=== PATIENT | female | born 1990 | race Caucasian/White ===

== ENCOUNTER → 2017-02-13 | Outpatient (CLI) | payer MEDICAID ==
[~2017-02-13] MED LIST: AMOXIL500 M1 PO; AMOXIL500 MG PO; ATARAX PO; AZITHROMYCIN250 MG PO; BACTROBAN2% TP; BENADRYL 50MG C50 MG PO; BENADRYL25 M1 PO; CHEW-IRON27 MG PO; CIPRO 500MG TA500 MG PO; CLARITIN 10MG T10 MG PO; COMPAZINE10 MG PO; DARVOCET-N 1001 EACH PO; DIPHENHYDRAMINE25 M1 PO; ELIMITE 5%60 GM/TUBE EX; FLAGYL 500MG.500 MG PO; FLEXERIL10 MG PO; HYDROXYZINE HYD10 MG PO; IBU800 M1 PO; IBUPROFEN400 MG PO; IRON TABLETS325 MG PO; KEFLEX 500MG.500 MG PO; LODINE200 MG PO; LORTAB 5/500 501 TAB PO; MACROBID 100MG100 MG PO; MEDROL 4MG. DOSE4 MG PO; MIRENA52 MG IU; MOTRIN 400MG.400 MG PO; MOTRIN400 MG PO; MOTRIN600 MG PO; NAPROSYN 500MG500 MG PO; NICOTINE T21 MG/24 H TD; NOMEDS XX; PEPCID20 MG PO; PEPTO BISM262 MG/15 PO; PERCOCET 5/3251 EACH PO; PHENERGAN 25MG.25 M1 PO; PREDNISONE 5MG.5 MG PO; PREDNISONE50 MG PO; PRENATAL PLUS1 TA1 PO; PROVERA10 MG PO; SEPTRA DS 800 M1 TAB PO; TESSALON PERLE200 MG PO; TOPAMAX200 MG PO; TRAMADOL 50MG T50 MG PO; TYLENOL 325MG325 MG PO; TYLENOL ES500 M1 PO; TYLENOL ES500 MG PO; Tri-Sprintec 281 TAB PO; ULTRAM 50 MG TA50 MG PO; VIBRAMYCIN 100100 MG PO; VICODIN 5/500 T1 TAB PO; VISTARIL25 M1 PO; VISTARIL50 MG PO; VOLTAREN75 MG PO; WELLBUTRIN 150150 MG; WELLBUTRIN 150150 MG PO
[2017-02-13 09:00] LABS: HEMOGLOBIN 13.5 g/dL (12.2-16.2); LYMPH # 2.8 K/mm3 (0.7-4.5); LYMPH % 50.5 % (10-50.0)
[2017-02-13 10:35] LABS: BUN 10 mg/dL (7-18); FREE THYROXIN INDEX 5.4 ug/dl (5.93-13.13)
[2017-02-13 10:37] LABS: GFR (ESTIMATED) 87 ML/MIN (59-)
[2017-02-13 17:40] LABS: NEUTROPHILS 44 % (42-76)
== END ==
LOC: LAB 08:45
PROVIDERS: Nurse Practitioner Obstetrics & Gynecology
DX: N92.0 Excessive and frequent menstruation with regular cycle (principal); N92.6 Irregular menstruation, unspecified; R10.2 Pelvic and perineal pain

== ENCOUNTER 2017-02-16 07:10 | Day surgery (SDC) | payer MEDICAID ==
[~2017-02-16] VITALS: Ht 162.6 cm; Wt 64.0 kg
--- NOTE | 2017-02-16 09:32 | Operative Note ---
Procedure/Operative Record Procedure Date of procedure: 02/16/17 Pre-Op Dx: Menorrhagia Post-Op Dx: Menorrhagia Procedure performed: Hysteroscopy, dilation and curettage, NovaSure ablation Surgeon: Dr. Alberto Vargas Machine Design Engineer(s): None Anesthesia: Charbel Schneider EBL (ml): 50 Clinical note: She is a 26-year-old lady who planes of stringy heavy periods. She's been tried on the control pill without any success. After having discussed the risks and benefits she elected to have a hysteroscopy, D and C and NovaSure ablation. Operative findings: She had a normal-appearing endometrial cavity. Operative note: She was taken to the operating room where LMA anesthesia was found be adequate. She was prepped and draped in the normal sterile fashion in the lithotomy position. A weighted speculum was placed in the vagina and the anterior lip of the cervix was grasped with a tenaculum. Diaz dilators used to dilate the cervix up to approximately 5 mm. I then inserted a cystoscope with glycine as a distending media. The individual cavity appeared normal. We then performed a gentle curettage. The cervix was further dilated to approximate 7 mm. I then sounded the uterus and it was found be 7 cm long. The endometrial cavity was 4.5 cm. We inserted the NovaSure device within the endometrial cavity and it was found to be 4.8 cm wide. These findings were placed in the NovaSure device. We then ran the device through its program. I injected approximately 30 mL of 0.5 percent ropivacaine at the 3:00, 5:00, 7: 00, and 9:00 positions. The patient tolerated the procedure well and was taken to the recovery room in excellent condition. All sponge instrument and needle counts were correct. Estimate a blood loss was approximately 50 mL. Conplications: None Specimens: Endometrial curettings at 0942
--- NOTE | 2017-02-16 09:35 | Anesthesia Record ---
Anesthesia Record Part I Total IV fluids: 900 EBL (ml): 20 Urine Output: 0 B/P: 126/79 % SaO2: 98 Pulse: 72 Resps: 12 Temp: 97.9 Patient is: Drowsy, Stable Stable to PACU at: 0930 at 0935
--- NOTE | 2017-02-16 09:37 | Anesthesia Record ---
Anesthesia Record Part II Discharge time: 1000 Destination: Same day surgery PACU nurse assessment review? Yes Patient is: Awake, Stable Anesthesia complications? No at 0918
[2017-02-16 14:05] VITALS: BP 120/88
== END 2017-02-16 10:30 | disposition home or self-care (01) ==
LOC: SDC 07:10
PROVIDERS: Nurse Practitioner Obstetrics & Gynecology
PROC: 0U5B8ZZ Destruction of Endometrium, Via Natural or Artificial Opening Endoscopic (ICD-10-PCS; principal; 2017-02-16 08:45)
DX: N92.0 Excessive and frequent menstruation with regular cycle (principal)
CPT/HCPCS: J2405

== ENCOUNTER → 2017-04-29 | Outpatient (CLI) | payer MEDICAID ==
--- NOTE | 2017-05-01 14:28 | RADIOLOGY REPORT PS360 ---
ULTRASOUND RIGHT AXILLA INDICATION: Lump in right axillary region. FINDINGS: General survey was performed of the right axilla and demonstrates a hypoechoic triangular shaped lesion in the subcutaneous area in the right axilla in the patient's region of pain measuring 6 mm. Is isoechoic centrally with peripheral decreased echogenicity and blood flow noted peripherally. This does not represent a simple cyst. This does not have typical appearance of a lymph node. Etiology is indeterminate sonographically. IMPRESSION: Complex triangular-shaped subcutaneous lesion in the right axilla corresponding to the patient's area of pain. Could be related to a small abscess/phlegmonous change. A solid subcutaneous nodule is also considered. Fine-needle aspiration could be performed by sonographic guidance for further evaluation if clinically desired
== END ==
LOC: RAD 14:57
DX: R59.0 Localized enlarged lymph nodes (principal)